=== PATIENT | male | born 1935 | race Caucasian/White ===

== ENCOUNTER 2024-04-01 07:00 | Inpatient (IN) | payer OTHER ==
[~2024-04-01] VITALS: Ht 165.1 cm; Wt 83.9 kg
[2024-04-01] MEDS: CEFAZOLIN SOD 2 GM in D5W 50 ML IV ONE (07:00)
[2024-04-01] MEDS: CELECOXIB 100 MG CAPSULE ONE (07:33)
[2024-04-01] MEDS: ACETAMINOPHEN 500 MG TABLET ONE (07:33)
[2024-04-01] MEDS: GABAPENTIN 300 MG CAPSULE ONE (07:36)
[2024-04-01] MEDS: oxyCODONE HCL 10 MG TAB.ER.12H PO ONE ×2 (07:36→08:51)
[2024-04-01] MEDS: SCOPOLAMINE HYDROBROMIDE 1 MG PATCH .72 H (TRANSDERM-SCOP) TD ONE ×2 (07:36→08:18)
[2024-04-01] MEDS: CELECOXIB 100 MG CAPSULE PO ONE (08:18)
[2024-04-01] MEDS: ACETAMINOPHEN 500 MG TABLET PO ONE (08:18)
[2024-04-01] MEDS ORDERED: SUCCINYLCHOLINE CHLORIDE 20 MG/ML(QUELICIN) ONE (08:45)
[2024-04-01] MEDS ORDERED: VANCOMYCIN HCL 1000 MG/VIAL IV ONE (08:45)
[2024-04-01] MEDS ORDERED: NS IRRIG SOLN 1000 ML IR ONE (08:45)
[2024-04-01] MEDS ORDERED: TRANEXAMIC ACID 1,000 MG/10 ML VIAL ONE (08:45)
[2024-04-01] MEDS ORDERED: ROCURONIUM BROMIDE 10 MG/ML (ZEMURON) ONE (08:45)
[2024-04-01] MEDS ORDERED: LR 1,000 ML IV.SOLN IV ONE ×2 (08:45)
[2024-04-01] MEDS ORDERED: BUPIVACAINE /EPINEPHRINE/PF 0.25% 30 ML VIAL ONE (08:45)
[2024-04-01] MEDS ORDERED: NS IRRIG SOLN 5000 ML IR ONE (08:45)
[2024-04-01] MEDS ORDERED: ONDANSETRON HCL 4 MG/2 ML VIAL ONE (08:45)
[2024-04-01] MEDS ORDERED: PROPOFOL 200MG/ 20ML VIAL (DIPRIVAN) IV ONE (08:45)
[2024-04-01] MEDS ORDERED: KETAMINE HCL 500 MG/10 ML VIAL ONE (08:45)
[2024-04-01] MEDS ORDERED: BUPIVACAINE /PF 0.75% 10 ML VIAL INJ ONE (08:45)
[2024-04-01] MEDS: fentaNYL CITRATE/PF 100 MCG/2 ML AMP ONE (08:48)
[2024-04-01] MEDS: MIDAZOLAM HCL 2 MG/2 ML VIAL (VERSED) ONE (08:48)
[2024-04-01] MEDS ORDERED: LABETALOL 100 MG/ 20ML VIAL IVP PRN (09:00)
[2024-04-01] MEDS ORDERED: METOCLOPRAMIDE HCL 10 MG/2 ML VIAL IVP PRN ×2 (09:00→12:15)
[2024-04-01] MEDS ORDERED: ePHEDrine sulfate 50 MG/ML VIAL IVP PRN (09:00)
[2024-04-01] MEDS ORDERED: HYDROmorphone 1 MG/ML INJ. CARTRIDGE IVP PRN ×4 (09:00→11:00)
[2024-04-01] MEDS ORDERED: ONDANSETRON HCL 4 MG/2 ML VIAL IVP PRN ×2 (09:00→11:45)
[2024-04-01] MEDS ORDERED: NALOXONE HCL 0.4 MG/ML AMP (NARCAN) IVP PRN ×6 (09:00→12:15)
[2024-04-01] MEDS: PROPOFOL DRIP 100 ML IV ONE (09:43)
[2024-04-01] MEDS ORDERED: traMADol HCL HCL 50 MG TABLET (ULTRAM) PO PRN (11:00)
[2024-04-01] MEDS ORDERED: LORATADINE 10 MG TABLET PO PRN (11:00)
[2024-04-01] MEDS ORDERED: oxyCODONE HCL 5 MG TABLET PO PRN ×2 (11:00)
[2024-04-01] MEDS ORDERED: MEMA7CAP PO (11:02)
[2024-04-01] MEDS ORDERED: METH2.5T PO (11:02)
[2024-04-01] MEDS ORDERED: HYDR200T80 PO (11:02)
[2024-04-01] MEDS ORDERED: FOLI-43 PO (11:02)
[2024-04-01] MEDS ORDERED: MELO-89 PO (11:02)
[2024-04-01] MEDS ORDERED: OXYC10TA56 PO (11:02)
[2024-04-01] MEDS ORDERED: VITD2000 PO (11:02)
[2024-04-01] MEDS ORDERED: ASPI-1393 PO (11:02)
[2024-04-01] MEDS ORDERED: LISI30TA36 PO (11:02)
[2024-04-01] MEDS ORDERED: LIP40 PO (11:02)
[2024-04-01] MEDS ORDERED: TADA20TA PO (11:02)
[2024-04-01] MEDS ORDERED: BIMA2.5D5 OP (11:02)
[2024-04-01] MEDS ORDERED: DIPHENHYDRAMINE HCL 25 MG CAPSULE PO PRN (12:15)
[2024-04-01] MEDS ORDERED: LACTULOSE 20 GM/30 ML UDC PO PRN (12:15)
[2024-04-01] MEDS ORDERED: BISACODYL 10 MG/SUPPOSITORY RC PRN (12:15)
[2024-04-01] MEDS: ACETAMINOPHEN 500 MG TABLET PO SCH (14:00)
[2024-04-01] MEDS: HYDROmorphone 1 MG/ML INJ. CARTRIDGE ONE (14:10)
[2024-04-01] MEDS: HYDROmorphone 1 MG/ML INJ. CARTRIDGE IVP PRN ×2 (14:14→15:40)
[2024-04-01] MEDS: oxyCODONE HCL 10 MG TAB.ER.12H PO SCH (15:00)
[2024-04-01] MEDS: TAMSULOSIN HCL 0.4 MG CAP PO ONE (15:17)
[2024-04-01] MEDS: GABAPENTIN 300 MG CAPSULE PO ONE (15:45)
[2024-04-01 16:00] VITALS: BP_SYST 141; PULSE 75; RESP 20; TEMP 97.3; O2SAT 95
[2024-04-01] MEDS: ceFAZolin SODIUM 2 GM in D5W 50 ML IV SCH (17:14)
[2024-04-01] MEDS: KETOROLAC TROMETHAMINE 10 MG TABLET (TORADOL) PO SCH (17:15)
[2024-04-01 17:32] VITALS: BP_SYST 141; PULSE 75; RESP 20; TEMP 97.3; O2SAT 95
[2024-04-01 20:02] VITALS: BP_SYST 138; PULSE 78; RESP 20; TEMP 98; O2SAT 96
[2024-04-01] MEDS: MELOXICAM 7.5 MG TABLET PO SCH (20:49)
[2024-04-01] MEDS: SENNOSIDES/DOCUSATE SODIUM 1 TAB TABLET(SENOKOT-S) PO SCH (20:49)
[2024-04-02 01:10] VITALS: BP_SYST 161; PULSE 83; RESP 18; TEMP 98.4; O2SAT 93
[2024-04-02 06:40] LABS: BASOPHILS % (AUTO) 0.3 % (0.0-2.0); EOSINOPHILS # (AUTO) 0.1 K/uL (0.0-0.4); EOSINOPHILS % (AUTO) 0.8 % (0.0-4.0); HEMATOCRIT 36.5 % (36-54); HEMOGLOBIN 12.2 g/dL (14.0-18.0); LYMPHOCYTES # (AUTO) 0.8 K/uL (1.0-5.5); LYMPHOCYTES % (AUTO) 10.9 % (20.5-51.5); MEAN CORPUSCULAR HEMOGLOBIN 30 pg (27-31); MEAN CORPUSCULAR HGB CONC 33 % (32-36); MEAN CORPUSCULAR VOLUME 90 fL (79.0-98.0); MONOCYTES # (AUTO) 0.8 K/uL (0.0-1.0); NEUTROPHILS # (AUTO) 5.6 K/uL (1.8-7.7); PLATELET COUNT (AUTO) 264 K/uL (130-430); RED BLOOD CELL COUNT(AUTO) 4.07 MIL/uL (4.2-6.2); WHITE BLOOD COUNT (AUTO) 7.3 K/uL (4.8-10.8)
[2024-04-02 06:49] LABS: ALANINE AMINOTRANSFERASE 21 U/L (12-78); ALBUMIN 3.5 g/dL (3.4-4.8); ANION GAP 8 (5-15); ASPARTATE AMINOTRANSFERASE 28 U/L (10-37); CARBON DIOXIDE 29 mmol/L (23-29); CHLORIDE 103 mmol/L (98-107); CREATININE 0.95 mg/dL (0.55-1.30); GLUCOSE 138 mg/dL (74-106); POTASSIUM 4.5 mmol/L (3.5-5.1); SODIUM SERUM 140 mmol/L (136-145); TOTAL BILIRUBIN 0.4 mg/dL (0.0-1.0); TOTAL PROTEIN, SERUM 6.7 g/dL (6.4-8.3); UREA NITROGEN, BLOOD 20 mg/dL (8-21)
[2024-04-02 08:00] VITALS: BP_SYST 162; PULSE 73; RESP 18; TEMP 98.7
[2024-04-02] MEDS: ATORVASTATIN 20 MG TABLET PO SCH (08:54)
[2024-04-02] MEDS: TAMSULOSIN HCL 0.4 MG CAP PO SCH (08:54)
[2024-04-02] MEDS: MEMANTINE HCL 5 MG TABLET PO SCH (08:55)
[2024-04-02] MEDS: ASPIRIN 81 MG TAB.CHEW PO SCH (08:55)
[2024-04-02] MEDS: LISINOPRIL 10 MG TABLET (PRINIVIL) PO SCH (08:59)
[2024-04-02] MEDS ORDERED: MEMANTINE HCL 7 MG CAP.SPR.24 PO SCH (09:00)
[2024-04-02] MEDS: CELECOXIB 200 MG CAPSULE PO SCH (11:39)
[2024-04-02 12:44] VITALS: BP_SYST 186; PULSE 80; RESP 18; TEMP 98.4; O2SAT 96
[2024-04-02 15:28] VITALS: BP_SYST 149; PULSE 78; RESP 16; TEMP 98.1; O2SAT 97
[2024-04-02] MEDS: HYDROmorphone 2 MG TAB PO PRN (16:48)
== END 2024-04-02 17:12 | disposition home or self-care (01) | DRG 468 ==
LOC: SMU 07:23
PROVIDERS: ADMIT Student in an Organized Health Care Education/Training Program; ATTEND Student in an Organized Health Care Education/Training Program
PROC: 0SRD0J9 Replacement of Left Knee Joint with Synthetic Substitute, Cemented, Open Approach (ICD-10-PCS; 2024-04-01)
PROC: 0SPD0JZ Removal of Synthetic Substitute from Left Knee Joint, Open Approach (ICD-10-PCS; principal; 2024-04-01 09:02)
DX: T84.033A Mechanical loosening of internal left knee prosthetic joint, initial encounter (principal); Y83.8 Other surgical procedures as the cause of abnormal reaction of the patient, or of later complication, without mention of misadventure at the time of the procedure; I10 Essential (primary) hypertension; R73.03 Prediabetes; M06.9 Rheumatoid arthritis, unspecified
CPT/HCPCS: 36415; 73560; 80053; 82948; 85025; 87081; 88305; 88311; 96379; 97110-GP; 97116-GP; 97530-GP; C1713; C1776; J0330; J0690; J1170; J2405; J2704; J3010; J3370; J3465; J3490; J7060; J7120